=== PATIENT | female | born 1985 | race Caucasian/White ===

== ENCOUNTER 2017-05-03 12:21 | Emergency (ER) | payer OTHER ==
[2017-05-03 12:26] VITALS: BP 140/80
--- NOTE | 2017-05-03 13:51 | ED Physician Documentation ---
PD MILANA HEENT - Stated complaint Stated Complaint: SINUS PRESSURE/SOA - Chief complaint Chief Complaint: Heent - History obtained from History obtained from: Patient - History of Present Illness Timing - onset: Other (31-year-old woman with recurrent sinusitis and asthma presents with 2 weeks of respiratory symptoms with prominent right maxillary pain, productive cough especially at night, right rib pain from coughing. Over the last 2 days has been running a fever with a maximum temperature of 102.8 yesterday. 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/Adenoidectomy - Present Medications Home Medications: Ambulatory Orders Medication Instructions Recorded Confirmed Cetirizine [ZyrTEC] 10 mg PO DAILY 04/22/14 11/28/14 Montelukast Sodium [Singulair] 10 mg PO DAILY 11/28/14 07/01/15 Albuterol Sulfate [Proventil Hfa 2 puffs PO Q6HR PRN 07/01/15 07/01/15 Inhaler] Aluminum Chloride [Drysol] 35 ml TOP DAILY PRN 07/01/15 07/01/15 Azithromycin [Zithromax] 250 mg PO DAILY #4 tablet 07/01/15 Guaifenesin/Pseudoephedrne HCl 600 mg PO BID 07/01/15 07/01/15 [Mucinex D ER 600-60 mg Tablet] HYDROcod/ACETAM 5/325 [[place] 5/325] 1 - 2 ea PO Q6H PRN #15 tablet 07/01/15 Ibuprofen [Motrin] 800 mg PO Q8H PRN #30 tablet 07/01/15 Amox/Clav 875/125 [Augmentin] 1 each PO Q12H #28 tablet 05/03/17 Guaifenesin/Pseudoephedrne HCl 1 each PO BID PRN #20 tab.er.12h 05/03/17 [Mucinex D ER 600-60 mg Tablet] Mometasone Furoate [Nasonex] 1 spray NS BID #1 spray.pump 05/03/17 guaiFENesin/CODEINE [Robitussin AC] 5 - 10 ml PO Q6H PRN #120 ml 05/03/17 - Allergies Allergies/Adverse Reactions: Allergies Allergy/AdvReac Type Severity Reaction Status Date / Time bee venom protein (honey bee) Allergy Unknown Verified 05/03/17 12:26 - Social History Does the pt smoke?: No Smoking Status: Never smoker Does the pt drink ETOH?: No Does the pt have substance abuse?: No - Immunizations Immunizations are current?: Yes - POLST Patient has POLST: No PD ED PE NORMAL - Vitals Vital signs reviewed: Yes - General General: Alert and oriented X 3, No acute distress - HEENT HEENT: Other (TMs normal, right maxillary sinus tenderness, oropharynx normal status post remote tonsillectomy.) - Neck Neck: Supple, no meningeal sign, No bony TTP - Cardiac Cardiac: RRR, No murmur - Respiratory Respiratory: No respiratory distress, Clear bilaterally - Abdomen Abdomen: Non tender - Neuro Neuro: Alert and oriented X 3, Normal speech Results - Vitals Vitals: Vital Signs - 24 hr 05/03/17 12:24 Temperature 36.3 C L Heart Rate 119 H Respiratory 20 Rate Blood Pressure 140/80 H O2 Saturation 97 Oxygen O2 Source Room air Departure - Departure Disposition: Home, Self Care Clinical Impression: Sinusitis Qualifiers: Sinusitis location: maxillary Chronicity: acute Recurrence: recurrent Qualified Code(s): J01.01 - Acute recurrent maxillary sinusitis Condition: Good Record reviewed to determine appropriate education?: Yes Instructions: ED Sinusitis Abx Tx Prescriptions: Amox/Clav 875/125 [Augmentin] 1 each PO Q12H #28 tablet guaiFENesin/CODEINE [Robitussin AC] 5 - 10 ml PO Q6H PRN #120 ml PRN Reason: Cough Guaifenesin/Pseudoephedrne HCl [Mucinex D ER 600-60 mg Tablet] 1 each PO BID PRN #20 tab.er.12h PRN Reason: congestion Mometasone Furoate [Nasonex] 1 spray NS BID #1 spray.pump Comments: Call your doctor to arrange a follow-up appointment, make the next available appointment. In the interim, return anytime if worse or if new symptoms develop. Your blood pressure was elevated today on check into the emergency department. This does not mean that you have hypertension, it is a common phenomenon to come to the emergency department and have elevated blood pressure. I recommend that you see your primary care physician within the week to have it rechecked when you are feeling better.
== END 2017-05-03 13:58 | disposition home or self-care (01) ==
LOC: ED 12:21
DX: J01.01 Acute recurrent maxillary sinusitis (principal); R03.0 Elevated blood-pressure reading, without diagnosis of hypertension
CPT/HCPCS: 99283

== ENCOUNTER 2018-03-29 10:29 | Emergency (ER) | payer OTHER ==
[2018-03-29] MEDS ORDERED: NAPROXEN 250 MG TABLET PO STA (10:54)
[2018-03-29] MEDS ORDERED: ONDANSETRON ODT 4 MG TABLET TL STA (10:54)
[2018-03-29] MEDS ORDERED: ACETAMINOPHEN 500 MG TABLET PO STA (10:54)
--- NOTE | 2018-03-29 11:25 | XRAY Report ---
Reason: cough Procedure Date: 03/29/2018 Accession Number: [id number] / [id number] Procedure: XR - Chest 2 View X-Ray CPT Code: 35348 FULL RESULT: EXAM: CHEST RADIOGRAPHY EXAM DATE: 03/29/2018 11:17 AM. CLINICAL HISTORY: COUGH. COMPARISON: CHEST 2 VIEW PA/LAT 07/01/2015 9:42 PM. TECHNIQUE: 2 views. FINDINGS: Lungs/Pleura: Focal consolidation in the left upper lobe is seen consistent with pneumonia. Right lung is clear. There is no effusion, pneumothorax, or vascular congestion. Mediastinum: Heart and mediastinal contours are unremarkable. Other: None. IMPRESSION: Left upper lobe pneumonia. Recommend posttreatment radiographic follow-up in 6 weeks. RADIA
[2018-03-29] MEDS ORDERED: DOXYCYCLINE 100 MG TABLET PO STA (11:46)
[2018-03-29 12:01] LABS: BILIRUBIN,URINE NEGATIVE (NEGATIVE); GLUCOSE, URINE (UA) NEGATIVE (NEGATIVE); KETONES,URINE (UA) NEGATIVE (NEGATIVE); LEUKOCYTE ESTERASE, URINE NEGATIVE (NEGATIVE); NITRITE,URINE NEGATIVE (NEGATIVE); OCCULT BLOOD,URINE TRACE-LYSE (NEGATIVE); PH,URINE 5.5 PH (5.0-7.5); PROTEIN,URINE NEGATIVE (NEGATIVE); UROBILINOGEN,URINE 0.2 (NORMAL) E.U./dL (NORMAL)
[2018-03-29 12:02] LABS: CLARITY,URINE CLEAR (CLEAR)
--- NOTE | 2018-03-29 12:06 | ED Physician Documentation ---
History of Present Illness - Stated complaint Stated Complaint: FEVER/NAUSEA - Chief complaint Chief Complaint: General - Additonal information Additional information: 32-year-old female presents the emergency department with complaints of body aches, fevers, chills, cough, nasal congestion and nausea for the past several days. The patient's symptoms slightly improved with [id number] antipyretics. The patient denies any respiratory distress. Symptoms are described as moderate. Symptoms have been ongoing for the past several days. No triggering factors. No relieving factors. No other associated symptoms. Review of Systems Constitutional: reports: Fever, Chills, Fatigue Eyes: denies: Discharge Ears: reports: Ear pain Nose: reports: Congestion Throat: denies: Sore throat Cardiac: denies: Chest pain / pressure Respiratory: reports: Cough. 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: Tonsil/Adenoidectomy - Present Medications Home Medications: Ambulatory Orders Medication Instructions Recorded Confirmed Albuterol 2 puffs PO PRN PRN 05/03/17 05/03/17 Fluticasone/Salmeterol [Advair Hfa 2 puffs PO DAILY 05/03/17 05/03/17 45-21 Mcg Inhaler] Loratadine [Claritin] 1 tab PO DAILY 05/03/17 05/03/17 Montelukast [Singulair] 1 tab PO DAILY 05/03/17 05/03/17 Sertraline HCl [Zoloft] 125 mg PO DAILY 05/03/17 05/03/17 raNITIdine [Zantac] 1 tab PO BID 05/03/17 05/03/17 Acetaminophen [Tylenol Extra 03/29/18 Strength] Albuterol Sulf [Ventolin Hfa 1 - 2 puffs INH Q4HR PRN #1 inhaler 03/29/18 Inhaler] Doxycycline Hyclate 100 mg PO BID #20 capsule 03/29/18 Ibuprofen 03/29/18 Naproxen 500 mg PO BID PRN #60 tablet 03/29/18 guaiFENesin [Mucinex] 03/29/18 - Allergies Allergies/Adverse Reactions: Allergies Allergy/AdvReac Type Severity Reaction Status Date / Time bee venom protein (honey bee) Allergy Unknown Verified 03/29/18 10:40 - Social History Does the pt smoke?: No Smoking Status: Never smoker Does the pt drink ETOH?: No Does the pt have substance abuse?: No - Immunizations Immunizations are current?: Yes - POLST Patient has POLST: No PD ED PE NORMAL - General General: Alert and oriented X 3, No acute distress - HEENT HEENT: Atraumatic, PERRL, EOMI, Ears normal - Neck Neck: Supple, no meningeal sign - Cardiac Cardiac: RRR, Strong equal pulses - Respiratory Respiratory: No respiratory distress - Abdomen Abdomen: Soft, Non tender - Derm Derm: Normal color - Extremities Extremities: No deformity - Neuro Neuro: Alert and oriented X 3, Normal speech - Psych Psych: Normal affect Results - Vitals Vitals: Vital Signs - 24 hr 03/29/18 03/29/18 10:38 12:16 Temperature 37.7 C H 36.5 C Heart Rate 97 88 Respiratory 16 16 Rate Blood Pressure 143/92 H 142/86 H O2 Saturation 100 97 Oxygen O2 Source Room air - Labs Labs: Laboratory Tests 03/29/18 03/29/18 03/29/18 11:06 11:06 11:45 Urine Color YELLOW Urine Clarity CLEAR Urine pH 5.5 Ur Specific [place] 1.020 Urine Protein NEGATIVE Urine Glucose (UA) NEGATIVE Urine Ketones NEGATIVE Urine Occult Blood TRACE-LYSE Urine Nitrite NEGATIVE Urine Bilirubin NEGATIVE Urine Urobilinogen 0.2 (NORMAL) Ur Leukocyte Esterase NEGATIVE Ur Microscopic Review NOT INDICATED Urine Culture Comments NOT INDICATED Influenza A (Rapid) Negative Influenza B (Rapid) Negative Group A Strep Rapid Negative - Rads (name of study) CXR Radiology: Final report received (Left uppper lobe Pneumonia ) PD MEDICAL DECISION MAKING - ED course ED course: The patient has pneumonia on chest x-ray, the patient has no clinical evidence of respiratory distress Or hypoxia or sepsis and appears appropriate for outpatient management with oral antibiotics. I discussed with her the recommendations from the radiologist for repeat chest x-ray. I discussed warning signs and recommended returning to the emergency department for any worsening or concerns. Departure - Departure Disposition: 01 Home, Self Care Clinical Impression: Pneumonia Qualifiers: Pneumonia type: due to unspecified organism Laterality: unspecified laterality Lung location: unspecified part of lung Qualified Code(s): J18.9 - Pneumonia, unspecified organism Condition: Good Instructions: ED Pneumonia Adult Follow-Up: NADINE ESPINAL [Primary Care Provider] - Within 1 week (Please ask your primary care to repeat a chest x-ray in 6 weeks to make sure that the pneumonia has resolved.) Prescriptions: Albuterol Sulf [Ventolin Hfa Inhaler] 1 - 2 puffs INH Q4HR PRN #1 inhaler PRN Reason: Shortness Of Air/Wheezing Doxycycline Hyclate 100 mg PO BID #20 capsule Naproxen 500 mg PO BID PRN #60 tablet PRN Reason: Pain Comments: Please return to the emergency department for worsening symptoms or any concerns Forms: Activity restrictions
[2018-03-29 12:17] VITALS: BP 142/86
== END 2018-03-29 12:25 | disposition home or self-care (01) ==
LOC: ED 10:29
DX: J18.9 Pneumonia, unspecified organism (principal)
CPT/HCPCS: 71046; 81003; 87070; 87275; 87276; 87430; 99283; 99284; A9270; Q0162; 81001; 87086